=== PATIENT | female | born 1950 | race Caucasian/White ===

== ENCOUNTER → 2021-02-10 14:08 | Outpatient (CLI) | payer MEDICARE, SELFPAY ==
[2021-02-10 14:30] LABS: Basophils % 0.4 % (0.1-2.0); Eosinophils # 0.1 K/mm3 (0.0-0.4); Eosinophils % 1.4 % (0.1-12.0); Hematocrit 40.1 % (37.0-47.0); Hemoglobin 13.3 g/dL (12.2-16.2); Lymphocytes # 1.5 K/mm3 (0.7-4.5); Lymphocytes % 32.7 % (10-50); Mean Corpuscular HGB Conc 33.2 g/dL (31.8-35.4); Mean Corpuscular Hemoglobin 31.1 pg (27.0-31.2); Mean Corpuscular Volume 93.7 fl (81-99); Mean Platelet Volume 7.3 fl (7.4-10.4); Monocytes # 0.3 K/mm3 (0.1-1.0); Monocytes % 5.8 % (1.7-9.3); Neutrophils # 2.7 K/mm3 (1.8-7.8); Neutrophils % 59.8 % (37.0-80.0); Platelet Count 389 K/mm3 (142-424); Red Blood Count 4.28 M/mm3 (4.20-5.40); Red Cell Distribution Width 12.9 % (11.5-17.5); White Blood Count 4.5 K/mm3 (4.8-10.8)
[2021-02-10 14:34] LABS: Alanine Aminotransferase 20 U/L (12-78); Albumin Level 5.2 g/dl (3.5-5.0); Albumin/Globulin Ratio 1.9 (1.1-1.8); Alkaline Phosphatase 75 U/L (38-126); Anion Gap 13.4 mEq/L (5-15); Aspartate Amino Transferase 33 U/L (14-36); Bilirubin,Total 0.5 mg/dl (0.2-1.3); Blood Urea Nitrogen 12 mg/dl (7-17); Calcium 9.8 mg/dl (8.4-10.2); Carbamazepine (Tegretol) 11.8 ug/ml (4.0-12.0); Carbon Dioxide 29 mmol/L (22.0-30.0); Chloride 93 mmol/L (98-107); Cholesterol 278 mg/dl (140-200); Estimated Glomerular Filt Rate 82 ml/min (>60); GFR (African American) 100 ML/MIN (>60); Globulin 2.7 g/dL (1.3-3.2); Glucose 100 mg/dl (74-100); Potassium 4.4 mmoL/L (3.5-5.1); Sodium 131 mmol/L (136-145); Total Protein,Serum 7.9 g/dl (6.3-8.2); Triglycerides 97 mg/dl (30-150); VLDL Cholesterol 19 mg/dL (0-40)
[2021-02-10 14:43] LABS: Direct LDL Cholesterol 108.21 mg/dL (100-129)
[2021-02-10 14:51] LABS: 25-OH Vitamin D, Total 18.1 ng/mL (30-100); Chol/HDL Ratio 2.1 (1-3.5); HDL Cholesterol 131 mg/dl (40-60); T4 (Thyroxine) 5.4 ug/dl (5.53-11.0)
[2021-02-10 15:04] LABS: Thyroid Stimulating Hormone 2.28 uIU/mL (0.465-4.68)
== END ==
PROVIDERS: Visit Provider Family Medicine
DX: E78.5 Hyperlipidemia, unspecified (principal); J30.2 Other seasonal allergic rhinitis; M81.0 Age-related osteoporosis without current pathological fracture; E55.9 Vitamin D deficiency, unspecified
CPT/HCPCS: 80053; 80061; 80156; 82306; 84436; 84443; 85025

== ENCOUNTER → 2022-02-04 16:36 | Outpatient (CLI) | payer MEDICARE, SELFPAY | PROVIDERS: PCP Family Medicine; Visit Provider Family Medicine | DX: N39.0 Urinary tract infection, site not specified (principal) | CPT/HCPCS: 87086 ==

== ENCOUNTER → 2023-01-05 15:37 | Outpatient (CLI) | payer MEDICARE, SELFPAY | PROVIDERS: PCP Nurse Practitioner Family; Visit Provider Nurse Practitioner Family | DX: R39.9 Unspecified symptoms and signs involving the genitourinary system (principal) | CPT/HCPCS: 87086 ==

== ENCOUNTER → 2023-04-18 23:53 | Outpatient (CLI) | payer MEDICARE, SELFPAY ==
[2023-04-18 18:23] LABS: Basophils % 0.2 % (0.1-2.0); Eosinophils # 0.1 K/mm3 (0.0-0.4); Eosinophils % 2.8 % (0.1-12.0); Hematocrit 33.5 % (37.0-47.0); Hemoglobin 10.6 g/dL (12.2-16.2); Lymphocytes # 1.3 K/mm3 (0.7-4.5); Lymphocytes % 28.1 % (10-50); Mean Corpuscular HGB Conc 31.7 g/dL (31.8-35.4); Mean Platelet Volume 8.7 fl (7.4-10.4); Monocytes # 0.4 K/mm3 (0.1-1.0); Monocytes % 8.1 % (1.7-9.3); Neutrophils # 2.7 K/mm3 (1.8-7.8); Neutrophils % 60.8 % (37.0-80.0); Platelet Count 470 K/mm3 (142-424); Red Blood Count 4.09 M/mm3 (4.20-5.40); White Blood Count 4.5 K/mm3 (4.8-10.8)
[2023-04-18 18:25] LABS: Alanine Aminotransferase 25 U/L (12-78); Albumin Level 4.3 g/dl (3.5-5.0); Albumin/Globulin Ratio 1.7 (1.1-1.8); Alkaline Phosphatase 82 U/L (38-126); Anion Gap 13.9 mEq/L (5-15); Aspartate Amino Transferase 38 U/L (14-36); Bilirubin,Total 0.3 mg/dl (0.2-1.3); Blood Urea Nitrogen 10 mg/dl (7-17); Calcium 8.7 mg/dl (8.4-10.2); Carbon Dioxide 29 mmol/L (22.0-30.0); Chloride 91 mmol/L (98-107); Cholesterol 245 mg/dl (140-200); Estimated Glomerular Filt Rate 98 ml/min (>60); GFR (African American) 118 ML/MIN (>60); Globulin 2.6 g/dL (1.3-3.2); Glucose 93 mg/dl (74-100); Potassium 4.9 mmoL/L (3.5-5.1); Sodium 129 mmol/L (136-145); Total Protein,Serum 6.9 g/dl (6.3-8.2); Triglycerides 65 mg/dl (30-150); VLDL Cholesterol 13 mg/dL (0-40)
[2023-04-18 18:34] LABS: Chol/HDL Ratio 1.7 (1-3.5); HDL Cholesterol 142 mg/dl (40-60)
[2023-04-18 18:38] LABS: Direct LDL Cholesterol 84.81 mg/dL (100-129)
[2023-04-18 18:57] LABS: Thyroid Stimulating Hormone 1.47 uIU/mL (0.465-4.68)
== END ==
PROVIDERS: PCP Family Medicine; Visit Provider Family Medicine
DX: G50.0 Trigeminal neuralgia (principal); E78.5 Hyperlipidemia, unspecified; Z00.00 Encounter for general adult medical examination without abnormal findings; Z79.899 Other long term (current) drug therapy
CPT/HCPCS: 80053; 80061; 84443; 85025

== ENCOUNTER → 2023-08-08 14:58 | Outpatient (CLI) | payer MEDICARE, SELFPAY ==
[2023-08-08 19:00] LABS: Chloride 93 mmol/L (98-107); Potassium 4.2 mmoL/L (3.5-5.1); Sodium 128 mmol/L (136-145)
[2023-08-08 19:03] LABS: Alanine Aminotransferase 19 U/L (12-78); Albumin Level 4.7 g/dl (3.5-5.0); Alkaline Phosphatase 75 U/L (38-126); Anion Gap 10.2 mEq/L (5-15); Aspartate Amino Transferase 32 U/L (14-36); Bilirubin,Total 0.2 mg/dl (0.2-1.3); Blood Urea Nitrogen 6 mg/dl (7-17); Calcium 8.8 mg/dl (8.4-10.2); Carbon Dioxide 29 mmol/L (22.0-30.0); Estimated Glomerular Filt Rate 98 ml/min (>60); GFR (African American) 118 ML/MIN (>60); Glucose 98 mg/dl (74-100); Iron 34 ug/dL (37-170)
[2023-08-08 19:04] LABS: Albumin/Globulin Ratio 1.8 (1.1-1.8); Globulin 2.6 g/dL (1.3-3.2); Total Protein,Serum 7.3 g/dl (6.3-8.2)
[2023-08-08 19:13] LABS: Total Iron Binding Capacity 420 ug/dL (265-497)
[2023-08-08 19:38] LABS: Basophils % 0.3 % (0.1-2.0); Eosinophils % 0.7 % (0.1-12.0); Hematocrit 31.8 % (37.0-47.0); Hemoglobin 10.6 g/dL (12.2-16.2); Lymphocytes # 1.2 K/mm3 (0.7-4.5); Lymphocytes % 35.5 % (10-50); Mean Corpuscular HGB Conc 33.3 g/dL (31.8-35.4); Mean Corpuscular Hemoglobin 28.4 pg (27.0-31.2); Mean Platelet Volume 7.8 fl (7.4-10.4); Monocytes # 0.2 K/mm3 (0.1-1.0); Monocytes % 5.8 % (1.7-9.3); Neutrophils # 1.9 K/mm3 (1.8-7.8); Neutrophils % 57.7 % (37.0-80.0); Platelet Count 447 K/mm3 (142-424); Red Blood Count 3.74 M/mm3 (4.20-5.40); Red Cell Distribution Width 14.1 % (11.5-17.5); White Blood Count 3.3 K/mm3 (4.8-10.8)
== END ==
PROVIDERS: PCP Family Medicine; Visit Provider Family Medicine
DX: Z01.818 Encounter for other preprocedural examination (principal); D50.8 Other iron deficiency anemias; D64.9 Anemia, unspecified
CPT/HCPCS: 80053; 83540; 83550; 85025

== ENCOUNTER 2024-06-11 11:30 | Outpatient (CLI) | payer MEDICARE, SELFPAY ==
[2024-06-11 19:11] LABS: Basophils % 0.9 % (0.1-2.0); Eosinophils % 0.6 % (0.1-12.0); Hematocrit 28.6 % (37.0-47.0); Hemoglobin 8.7 g/dL (12.2-16.2); Lymphocytes # 1.1 K/mm3 (0.7-4.5); Lymphocytes % 32.6 % (10-50); Mean Corpuscular HGB Conc 30.6 g/dL (31.8-35.4); Mean Corpuscular Hemoglobin 25.8 pg (27.0-31.2); Mean Corpuscular Volume 84.2 fl (81-99); Mean Platelet Volume 8.6 fl (7.4-10.4); Monocytes # 0.3 K/mm3 (0.1-1.0); Monocytes % 7.6 % (1.7-9.3); Neutrophils % 58.3 % (37.0-80.0); Platelet Count 532 K/mm3 (142-424); Red Blood Count 3.39 M/mm3 (4.20-5.40); Red Cell Distribution Width 14.6 % (11.5-17.5); White Blood Count 3.4 K/mm3 (4.8-10.8)
[2024-06-11 19:45] LABS: Alanine Aminotransferase 26 U/L (12-78); Albumin Level 4.2 g/dl (3.5-5.0); Albumin/Globulin Ratio 1.6 (1.1-1.8); Alkaline Phosphatase 68 U/L (38-126); Anion Gap 9.7 mEq/L (5-15); Aspartate Amino Transferase 35 U/L (14-36); Bilirubin,Total 0.3 mg/dl (0.2-1.3); Blood Urea Nitrogen 9 mg/dl (7-17); Carbon Dioxide 28 mmol/L (22.0-30.0); Chloride 94 mmol/L (98-107); Cholesterol 226 mg/dl (140-200); Estimated Glomerular Filt Rate 97 ml/min (>60); GFR (African American) 118 ML/MIN (>60); Globulin 2.6 g/dL (1.3-3.2); Glucose 101 mg/dl (74-100); Potassium 4.7 mmoL/L (3.5-5.1); Sodium 127 mmol/L (136-145); Total Protein,Serum 6.8 g/dl (6.3-8.2); Triglycerides 70 mg/dl (30-150); VLDL Cholesterol 14 mg/dL (0-40)
[2024-06-11 19:56] LABS: Direct LDL Cholesterol 83.98 mg/dL (100-129)
[2024-06-11 20:02] LABS: HDL Cholesterol 112 mg/dl (40-60)
[2024-06-11 21:20] LABS: 25-OH Vitamin D, Total 40.4 ng/mL (30-100)
[2024-06-11 21:51] LABS: Iron 37 ug/dL (37-170)
[2024-06-11 22:00] LABS: Total Iron Binding Capacity 405 ug/dL (265-497)
[2024-06-11 22:17] LABS: Vitamin B12 387 pg/mL (239-931)
== END 2024-06-11 23:59 | disposition home or self-care (01) ==
LOC: LAB.DROPOF 06-12 10:06
PROVIDERS: PCP Family Medicine; Visit Provider Family Medicine
DX: E78.5 Hyperlipidemia, unspecified (principal); E55.9 Vitamin D deficiency, unspecified; N39.0 Urinary tract infection, site not specified; E61.1 Iron deficiency
CPT/HCPCS: 80050; 80053; 80061; 82306; 82607; 83540; 83550; 84443; 85025; 87086

== ENCOUNTER 2024-07-31 14:00 | Outpatient (CLI) | payer MEDICARE, SELFPAY | END 2024-07-31 23:59 | disposition home or self-care (01) | LOC: LAB.DROPOF 08-02 11:48 | PROVIDERS: PCP Nurse Practitioner; Visit Provider Nurse Practitioner | DX: R30.0 Dysuria (principal) | CPT/HCPCS: 87086 ==

== ENCOUNTER 2024-11-19 14:55 | Outpatient (CLI) | payer MEDICARE, SELFPAY ==
[2024-11-19 19:49] LABS: Basophils % 0.3 % (0.1-2.0); Eosinophils % 0.3 % (0.1-12.0); Hematocrit 33.1 % (37.0-47.0); Hemoglobin 10.9 g/dL (12.2-16.2); Lymphocytes # 0.9 K/mm3 (0.7-4.5); Lymphocytes % 23.7 % (10-50); Mean Corpuscular HGB Conc 32.9 g/dL (31.8-35.4); Mean Corpuscular Volume 91.2 fl (81-99); Mean Platelet Volume 8.4 fl (7.4-10.4); Monocytes # 0.3 K/mm3 (0.1-1.0); Monocytes % 7.4 % (1.7-9.3); Neutrophils # 2.6 K/mm3 (1.8-7.8); Neutrophils % 68.3 % (37.0-80.0); Platelet Count 368 K/mm3 (142-424); Red Blood Count 3.63 M/mm3 (4.20-5.40); Red Cell Distribution Width 14.1 % (11.5-17.5); White Blood Count 3.8 K/mm3 (4.8-10.8)
[2024-11-19 20:43] LABS: Albumin Level 5.2 g/dl (3.5-5.0); Chloride 90 mmol/L (98-107); Sodium 125 mmol/L (136-145)
[2024-11-19 20:44] LABS: Potassium 5.2 mmoL/L (3.5-5.1)
[2024-11-19 20:46] LABS: Alanine Aminotransferase 20 U/L (12-78); Albumin/Globulin Ratio 3.5 (1.1-1.8); Alkaline Phosphatase 68 U/L (38-126); Anion Gap 12.2 mEq/L (5-15); Aspartate Amino Transferase 32 U/L (14-36); Bilirubin,Total 0.2 mg/dl (0.2-1.3); Blood Urea Nitrogen 9 mg/dl (7-17); Carbon Dioxide 28 mmol/L (22.0-30.0); Estimated Glomerular Filt Rate 97 ml/min (>60); GFR (African American) 118 ML/MIN (>60); Globulin 1.5 g/dL (1.3-3.2); Iron 90 ug/dL (37-170); Total Protein,Serum 6.7 g/dl (6.3-8.2)
[2024-11-19 20:47] LABS: Calcium 8.9 mg/dl (8.4-10.2); Glucose 98 mg/dl (74-100)
[2024-11-19 20:59] LABS: Total Iron Binding Capacity 305 ug/dL (265-497)
[2024-11-19 21:22] LABS: Ferritin 35.3 ng/ml (11.1-264)
[2024-11-19 23:01] LABS: Thyroid Stimulating Hormone 1.31 uIU/mL (0.465-4.68)
[2024-11-19 23:20] LABS: Vitamin B12 377 pg/mL (239-931)
== END 2024-11-19 23:59 | disposition home or self-care (01) ==
LOC: LAB.DROPOF 11-20 09:47
PROVIDERS: PCP Family Medicine; Visit Provider Family Medicine
DX: E61.1 Iron deficiency (principal); R42 Dizziness and giddiness; G50.0 Trigeminal neuralgia; D64.9 Anemia, unspecified
CPT/HCPCS: 80053; 82607; 82728; 83540; 83550; 84443; 85025

== ENCOUNTER 2024-11-28 12:19 | Outpatient (CLI) | payer MEDICARE, SELFPAY ==
[2024-11-28 20:01] LABS: Alanine Aminotransferase 23 U/L (12-78); Albumin Level 4.8 g/dl (3.5-5.0); Albumin/Globulin Ratio 2.7 (1.1-1.8); Alkaline Phosphatase 63 U/L (38-126); Anion Gap 14.8 mEq/L (5-15); Aspartate Amino Transferase 29 U/L (14-36); Bilirubin,Total 0.4 mg/dl (0.2-1.3); Blood Urea Nitrogen 9 mg/dl (7-17); Calcium 9.1 mg/dl (8.4-10.2); Carbon Dioxide 28 mmol/L (22.0-30.0); Chloride 89 mmol/L (98-107); Estimated Glomerular Filt Rate 97 ml/min (>60); GFR (African American) 118 ML/MIN (>60); Globulin 1.8 g/dL (1.3-3.2); Glucose 90 mg/dl (74-100); Potassium 4.8 mmoL/L (3.5-5.1); Sodium 127 mmol/L (136-145); Total Protein,Serum 6.6 g/dl (6.3-8.2)
== END 2024-11-28 23:59 | disposition home or self-care (01) ==
LOC: LAB.DROPOF 11-29 11:23
PROVIDERS: PCP Family Medicine; Visit Provider Family Medicine
DX: E87.1 Hypo-osmolality and hyponatremia (principal)
CPT/HCPCS: 80053

== ENCOUNTER 2024-12-18 10:10 | Outpatient (CLI) | payer MEDICARE, SELFPAY ==
[2024-12-18 21:13] LABS: Chloride 90 mmol/L (98-107); Potassium 4.4 mmoL/L (3.5-5.1); Sodium 127 mmol/L (136-145)
[2024-12-18 21:16] LABS: Anion Gap 11.4 mEq/L (5-15); Blood Urea Nitrogen 9 mg/dl (7-17); Carbon Dioxide 30 mmol/L (22.0-30.0); Estimated Glomerular Filt Rate 81 ml/min (>60); GFR (African American) 98 ML/MIN (>60)
[2024-12-18 21:17] LABS: Glucose 90 mg/dl (74-100)
== END 2024-12-18 23:59 | disposition home or self-care (01) ==
LOC: LAB.DROPOF 12-19 10:10
PROVIDERS: PCP Family Medicine; Visit Provider Family Medicine
DX: E87.1 Hypo-osmolality and hyponatremia (principal)
CPT/HCPCS: 80048

== ENCOUNTER 2025-01-18 12:08 | Outpatient (CLI) | payer MEDICARE, SELFPAY | END 2025-01-18 23:59 | disposition home or self-care (01) | LOC: LAB.DROPOF 01-19 11:53 | PROVIDERS: PCP Family Medicine; Visit Provider Family Medicine | DX: E87.1 Hypo-osmolality and hyponatremia (principal) ==

== ENCOUNTER 2025-01-23 11:41 | Outpatient (CLI) | payer MEDICARE, SELFPAY ==
[2025-01-23 19:02] LABS: Anion Gap 13.8 mEq/L (5-15); Blood Urea Nitrogen 7 mg/dl (7-17); Carbon Dioxide 28 mmol/L (22.0-30.0); Chloride 90 mmol/L (98-107); Estimated Glomerular Filt Rate 97 ml/min (>60); GFR (African American) 118 ML/MIN (>60); Glucose 89 mg/dl (74-100); Potassium 4.8 mmoL/L (3.5-5.1); Sodium 127 mmol/L (136-145)
== END 2025-01-23 23:59 | disposition home or self-care (01) ==
LOC: LAB.DROPOF 01-24 11:00
PROVIDERS: PCP Family Medicine; Visit Provider Family Medicine
DX: E87.1 Hypo-osmolality and hyponatremia (principal)
CPT/HCPCS: 80048

== ENCOUNTER 2025-02-28 15:00 | Outpatient (CLI) | payer MEDICARE, SELFPAY ==
[2025-02-28 19:00] LABS: Basophils % 0.5 % (0.1-2.0); Eosinophils % 1.1 % (0.1-12.0); Hematocrit 25.7 % (37.0-47.0); Hemoglobin 8.3 g/dL (12.2-16.2); Immature Granulocytes # 0.01 10^3uL; Immature Granulocytes % 0.3 %; Lymphocytes # 1.1 K/mm3 (0.7-4.5); Lymphocytes % 30.2 % (10-50); Mean Corpuscular HGB Conc 32.3 g/dL (31.8-35.4); Mean Corpuscular Hemoglobin 27.3 pg (27.0-31.2); Mean Corpuscular Volume 84.5 fl (81-99); Mean Platelet Volume 8.5 fl (7.4-10.4); Monocytes # 0.4 K/mm3 (0.1-1.0); Monocytes % 9.9 % (1.7-9.3); Neutrophils # 2.1 K/mm3 (1.8-7.8); Nucleated Red Blood Cells # 0 10^3/uL; Nucleated Red Blood Cells % 0 %; Platelet Count 428 K/mm3 (142-424); Red Blood Count 3.04 M/mm3 (4.20-5.40); Red Cell Distribution Width 12.5 % (11.5-17.5); Red Cell Distribution Width-SD 38.5 fL; White Blood Count 3.6 K/mm3 (4.8-10.8)
[2025-02-28 19:09] LABS: Alanine Aminotransferase 20 U/L (12-78); Albumin Level 4.7 g/dl (3.5-5.0); Albumin/Globulin Ratio 2.4 (1.1-1.8); Alkaline Phosphatase 63 U/L (38-126); Anion Gap 10.2 mEq/L (5-15); Aspartate Amino Transferase 28 U/L (14-36); Bilirubin,Total 0.2 mg/dl (0.2-1.3); Blood Urea Nitrogen 7 mg/dl (7-17); Calcium 9.1 mg/dl (8.4-10.2); Carbon Dioxide 28 mmol/L (22.0-30.0); Chloride 90 mmol/L (98-107); Estimated Glomerular Filt Rate 97 ml/min (>60); GFR (African American) 118 ML/MIN (>60); Glucose 90 mg/dl (74-100); Potassium 5.2 mmoL/L (3.5-5.1); Sodium 123 mmol/L (136-145); Total Protein,Serum 6.7 g/dl (6.3-8.2)
[2025-02-28 20:22] LABS: Iron 28 ug/dL (37-170)
[2025-02-28 20:31] LABS: Total Iron Binding Capacity 377 ug/dL (265-497)
== END 2025-02-28 23:59 | disposition home or self-care (01) ==
LOC: LAB.DROPOF 03-01 11:36
PROVIDERS: PCP Nurse Practitioner; Visit Provider Nurse Practitioner
DX: E87.1 Hypo-osmolality and hyponatremia (principal); E61.1 Iron deficiency; D64.9 Anemia, unspecified
CPT/HCPCS: 80053; 83540; 83550; 85025

== ENCOUNTER 2025-07-25 10:25 | Outpatient (CLI) | payer MEDICARE, SELFPAY ==
[2025-07-25 16:21] LABS: Hematocrit 36.4 % (37.0-47.0); Hemoglobin 11.2 g/dL (12.2-16.2); Immature Granulocytes % 0.3 %; Mean Corpuscular HGB Conc 30.8 g/dL (31.8-35.4); Mean Corpuscular Hemoglobin 24.9 pg (27.0-31.2); Mean Corpuscular Volume 81.1 fl (81-99); Nucleated Red Blood Cells % 0 %; Platelet Count 411 K/mm3 (142-424); Red Blood Count 4.49 M/mm3 (4.20-5.40); Red Cell Distribution Width-SD 48.5 fL; White Blood Count 3.9 K/mm3 (4.8-10.8)
[2025-07-25 18:50] LABS: Iron 77 ug/dL (37-170)
[2025-07-25 19:00] LABS: Total Iron Binding Capacity 375 ug/dL (265-497)
[2025-07-25 19:04] LABS: Alanine Aminotransferase 17 U/L (12-78); Albumin Level 4.7 g/dl (3.5-5.0); Albumin/Globulin Ratio 1.7 (1.1-1.8); Alkaline Phosphatase 91 U/L (38-126); Anion Gap 16.4 mEq/L (5-15); Aspartate Amino Transferase 28 U/L (14-36); Bilirubin,Total 0.5 mg/dl (0.2-1.3); Blood Urea Nitrogen 12 mg/dl (7-17); Calcium 9.3 mg/dl (8.4-10.2); Carbon Dioxide 27 mmol/L (22.0-30.0); Chloride 87 mmol/L (98-107); Cholesterol 251 mg/dl (140-200); Creatinine,Serum 0.80 mg/dl (0.52-1.04); Estimated Glomerular Filt Rate 70 ml/min (>60); GFR (African American) 84 ML/MIN (>60); Globulin 2.8 g/dL (1.3-3.2); Glucose 100 mg/dl (74-100); Potassium 4.4 mmoL/L (3.5-5.1); Sodium 126 mmol/L (136-145); Total Protein,Serum 7.5 g/dl (6.3-8.2); Triglycerides 64 mg/dl (30-150)
[2025-07-25 19:15] LABS: HDL Cholesterol > 110 mg/dl (40-60)
[2025-07-25 19:42] LABS: Hepatitis C Ab Qual. W/ RFX NEGATIVE (Negative)
--- OUTSIDE RECORDS SUMMARY | 2025-07-26 02:42 | XMS_ITS | Clinical Summary ---
Author Organization [facility] Address [address] [place] [phone] Phone Care Team Providers Care Vp Clinical Name Role Phone Elle RODRIGUEZ, [facility] Conditions or Problems Problem Name Problem Code Onset Date Status Entry Date Provider Comment Standard Description Annotate TRIGEMINAL NEURALGIA 95423821 (SNOMED CT) Active Margo Carrillo MA Trigeminal neuralgia Medications Medication Instructions Start Date Stop Date Generic Name NDC Provider TEGRETOL 200 MG TABS Take 1 tablet bid X 2 weeks, then increase to TID x2 weeks. CARBAMAZEPINE [id number] Johan Almeida MD NEXIUM 20 MG PACK Non-Canaan ESOMEPRAZOLE MAGNESIUM [id number] Margo Carrillo MA ALLERGY RELIEF 50 MCG/ACT SUSP Non-Andrade FLUTICASONE PROPIONATE [id number] Margo Carrillo MA [facility] GAS RELIEF EXTRA STRENGTH CHEW 1-2 after meals Non-[place] SIMETHICONE CHEW [id number] Margo Carrillo MA ROSUVASTATIN CALCIUM 40 MG TABS 1 qd Non-Andrade ROSUVASTATIN CALCIUM [id number] Margo Carrillo MA ALENDRONATE SODIUM 70 MG TABS Once a week Non-[place] ALENDRONATE SODIUM [id number] Margo Carrillo MA GABAPENTIN 400 MG CAPS 4 a day Non-[place]anaan GABAPENTIN [id number] Margo Carrillo MA Medications Administered No information available. Allergies, Adverse Reactions, Alerts Allergy Name Reaction Description Start Date Severity Statu s Provider SULFA redness Mild Margo Gof f MA BACTRIM Moderate Margo Gof f MA Results No information available. Plan of Care Type Date Detail Referral Referral to Neur ology Referral Referral to Neur ology Referral Referral to Neur ology Referral Referral to Neur ology Pending order CMP--COMPREHENSI VE METABOLIC PANEL Pending order Sodium level Pending order CMP--COMPREHENSI VE METABOLIC PANEL Pending order CMP--COMPREHENSI VE METABOLIC PANEL Pending order CMP--COMPREHENSI VE METABOLIC PANEL Pending order Sodium level Patient education TRIGEMINAL%20N EURALGIA Procedures No information available. Vital Signs Date Name Value Unit Description BMI (Body Mass Index) 19.95 kg/m2 Bod y Mass Index (Ratio) BP Diastolic 71 mm[Hg] blood pressu re, diastolic BP Systolic 113 mm[Hg] blood pressur e, systolic Height 61 [in_us] height E&M Weight Measured 105.6 [lb_av] weight E& M Weight Measured 105.6 [lb_av] weight E& M Heart Rate 70 /min pulse rate Immunizations No information available. Advance Directives No information available.
--- OUTSIDE RECORDS SUMMARY | 2025-07-26 02:42 | XMS_ITS | Clinical Summary ---
Author Organization [facility] Address [address] [place] [address] Care Team Providers Care Environmental Aide Name Role Phone Wilson Norton MD Primary Care Provider [phone] Allergies Active Allergy Reactions Criticality Noted Date Comments Sulfamethoxazole-Trimethoprim Hives 2018 Sulfa Antibiotics Other (See Comments) 07/12/20 19 Redness Medications gabapentin (NEURONTIN) 400 MG capsule 06/07/2019 Active rosuvastatin (CRESTOR) 40 MG tablet 05/10/2019 Active carBAMazepine (TEGRETOL) 200 MG tablet Take 1 tablet by mouth 3 (Three) Times a Day. 90 tablet 1 07/12/2019 Active Active Problems No known active problems Social History Tobacco Use Types Packs/Day Years Used Date Smoking Tobacco: Never Smokeless Tobacco: Never Alcohol Use Standard Drinks/Week Comments No 0 (1 standard drink = 0.6 oz pur e alcohol) AUDIT-C Answer Date Recorded Frequency of Alcohol Consumption Never 07/13/2019 Average Number of Drinks Not on file 019 Frequency of Binge Drinking Not on file 06/18 Abuse Screen Answer Date Recorded Unsafe at Home or Work/School Not on file Feels Threatened by Someone? Not on file 09/2023 Does Anyone Keep You from Co ntacting Others or Doint Things Outside the Home? Not on file 07/28/2023 Physical Sign of Abuse Present Not on file 1 Housing Stability Answer Date Recorded Current Living Arrangements Not on file 07/17 Potentially Unsafe Housing Conditions Not on kathya e 07/28/2023 Family and Community Support Answer Alfredo e Recorded Help with Day-to-Day Activities Not on file 07/28/2023 Lonely or Isolated Not on file 07/28/2023 Employment Answer Date Recorded Do you want help finding or keeping work or a edouard b? Not on file 07/28/2023 Disabilities Answer Date Recorded Concentrating, Remembering, or Making Decisions Difficulty Not on file 07/28/2023 Doing Errands Independently Difficulty Not on fi le 07/28/2023 Education Answer Date Recorded Help with school or training? Not on file Preferred Language Not on file 07/28/2023 Comments Unknown Sex and Gender Information Value Date Recorded Sex Assigned at Not on file Legal Sex Female 2:22 PM EDT Gender Identity Not on file Sexual Orientation Not on file Last Filed Vital Signs Vital Sign Reading Time Taken Comments Blood Pressure - - Pulse - - Temperature - - Respiratory Rate 14 07/12/2019 3:03 PM EDT Oxygen Saturation - - Inhaled Oxygen Concentration - - Weight 47.1 kg (103 lb 12.8 oz) 07/12/2019 3:03 PM EDT Height 154.9 cm (5' 1 ) 07/12/2019 3:03 PM EDT Body Mass Index 19.61 07/12/2019 3:03 PM EDT Plan of Treatment Health Maintenance Due Date Last Done Comments DXA SCAN 1948 TDAP/TD VACCINES (1 - Tdap) 1967 Pneumococcal Vaccine 50+ (1 of 1 - PCV) 1998 ZOSTER VACCINE (1 of 2) 1998 ANNUAL PHYSICAL 07/12/2019 HEPATITIS C SCREENING 07/12/2019 RSV Vaccine - Adults (1 - 1-dose 75+ series) INFLUENZA VACCINE 05/17/2025 COVID-19 Vaccine ( - season) 2025 Insurance [facility] MEDICARE REPLACE Care Teams Environmental Aide Relationship Specialty Start Date End Date Wilson Norton MD [address] [place] [address] PCP - General Family Medicine 07/11/19
[2025-07-27 07:40] LABS: Hepatitis B Surface Antigen Negative (Negative)
== END 2025-07-25 23:59 | disposition home or self-care (01) ==
LOC: LAB.DROPOF 07-26 02:40
PROVIDERS: PCP Family Medicine; Visit Provider Family Medicine
DX: E87.1 Hypo-osmolality and hyponatremia (principal); E61.1 Iron deficiency; D64.9 Anemia, unspecified; E78.5 Hyperlipidemia, unspecified; Z11.59 Encounter for screening for other viral diseases
CPT/HCPCS: 80053; 80061; 83540; 83550; 85025; 86803; 87340; 87389